=== PATIENT | female | born 1960 ===

== ENCOUNTER 2016-05-28 14:42 | Emergency (ER) | payer SELFPAY ==
[~2016-05-28] VITALS: Ht 175.3 cm; Wt 78.0 kg
[2016-05-28 14:44] VITALS: BP 126/65; PULSE 86; RESP 20; TEMP 98.3; O2SAT 100
--- NOTE | 2016-05-28 15:01 | PD ---
Physical Exam Time Seen by Provider: 14:59 Narrative 55yo F requesting medication refill on xanax, adderall, lamictal, and celexa. No medical complaints. VSS. Patient seen in triage. Waiting for bed placement. Data Data Last Documented VS Vital Signs Date Time Temp Pulse Resp B/P Pulse Ox O2 Delivery O2 Flow Rate FiO2 05/28/16 14:44 98.3 86 20 126/65 100 Room Air MDM Supervised Visit with KEEGAN: Yi Reagan May 28, 2016 15:01
--- NOTE | 2016-05-28 15:55 | PD ---
HPI . requesting refills on xanax, Adderall, Lamictal and Celexa Chief Complaint: Medication Refill Request Time Seen by Provider: 15:52 Travel History International Travel<30 days: No Contact w/Intl Traveler<30days: No Traveled to known affect area: No History of Present Illness HPI 55-year-old female with history of bipolar disorder and post medical stress disorder here requesting refill on Xanax, Adderall, Lamictal and Celexa. Patient says she was previously seen by another provider who is retiring and ran out of medications. She is here requesting a 19 day supply as she has a new primary care provider, but they are unable to see her until then. She has no other complaints. History Past Medical Histgory ?: Not Menopausal: No Hx Cancer: No Hx Chemotherapy: No Hx Radiation Therapy: No Hx Diabetes: No History of Immunological Disor: No HX Cerebrovascular Accident: No Hx Heart Attack: No Hx Asthma: No Hx Dialysis: No Social History Alcohol Use: No Tobacco Use: No Allergies-Medications (Allergen,Severity, Reaction): Coded Allergies: No Known Allergies (Unverified , 05/28/16) Review of Systems General / Constitutional: No: Fever Eyes: No: Visual changes HENT: No: Headaches Cardiovascular: No: Chest Pain or Discomfort Respiratory: No: Shortness of Breath Gastrointestinal: No: Abdominal Pain Genitourinary: No: Dysuria Musculoskeletal: No: Pain Skin: No Rash Neurologic: No: Weakness Psychiatric: No: Depression Endocrine: No: Polydipsia Hematologic/Lymphatic: No: Easy Bruising Physical Exam Narrative GENERAL: AAO x 3, no acute distress, Well-nourished, well-developed patient. SKIN: Warm and dry. No visible rashes or bruising. HEAD: Normocephalic and atraumatic. EYES: No scleral icterus. No injection or drainage. ENT: No nasal drainage noted. Mucous membranes pink. Airway patent. NECK: Supple, trachea midline. No JVD. CARDIOVASCULAR: Regular rate and rhythm without murmurs, gallops, or rubs. RESPIRATORY: Breath sounds equal bilaterally. No accessory muscle use. No rhonchi or rales. GASTROINTESTINAL: Visual inspection is normal EXTREMITIES: No cyanosis or edema. BACK: Nontender without obvious deformity. No CVA tenderness. PSYCH: AAO x 3, normal affect. Data Data Last Documented VS Vital Signs Date Time Temp Pulse Resp B/P Pulse Ox O2 Delivery O2 Flow Rate FiO2 05/28/16 14:44 98.3 86 20 126/65 100 Room Air MDM Medical Screen Exam Complete: Yes Emergency Medical Condition: No Differential Diagnosis medication refill, anxiety, bipolar disorder Narrative Course 55-year-old female with history of bipolar disorder and post medical stress disorder here requesting refill on Xanax, Adderall, Lamictal and Celexa. Patient says she was previously seen by another provider who is retiring and ran out of medications. She is here requesting a 19 day supply as she has a new primary care provider, but they are unable to see her until then. She has no other complaints. A medical screening exam was performed: At the time of evaluation the presenting medical condition was determined not to be of an emergent nature. The patient was given the option of receiving additional care, but declined. Patient was given options for additional community resources from which to obtain care. The Patient Has Been advised to seek medical attention for their presenting complaint. The patient has been advised to return to the ER at any time if an emergent condition develops. Primary Impression: Encounter for medical screening examination Condition: Stable Courtney Villegas May 28, 2016 15:55
== END 2016-05-28 16:18 | disposition left against medical advice (07) ==
LOC: NEPK 14:42
DX: F31.9 Bipolar disorder, unspecified (principal)
CPT/HCPCS: 99281

== ENCOUNTER 2017-05-24 10:51 | Emergency (ER) | payer MEDICARE ==
[~2017-05-24] VITALS: Ht 175.3 cm; Wt 81.8 kg
[2017-05-24 11:10] VITALS: BP 128/77; PULSE 67; RESP 18; TEMP 98.2; O2SAT 97
--- NOTE | 2017-05-24 11:45 | RADRPT ---
EXAM DATE/TIME: 05/24/2017 11:19 [facility] COMPARISON: No previous studies available for comparison. INDICATIONS : Stepped on glass three weeks ago. Pain in heel. MEDICAL HISTORY : None. SURGICAL HISTORY : None. ENCOUNTER: Initial ACUITY: 3 weeks PAIN SCORE: 8/10 LOCATION: Left Heel FINDINGS: Three view examination of the left foot demonstrates no soft tissue swelling, dislocation, or fractur e. The tarsal bones appear intact. The interphalangeal and metatarsophalangeal joints are intact. The calcaneus is intact. Bony mineralization is normal. There is a trying to the foreign body just inferior to the calcaneus measuring 10 mm x 4 mm. CONCLUSION: Foreign body as above Daryn Douglas MD on May 24, 2017 at 11:42 Board Certified Radiologist. This report was verified electronically.
[2017-05-24] MEDS ORDERED: IBUP-232 PO (13:06)
[2017-05-24] MEDS ORDERED: CEPH-460 PO (13:06)
--- NOTE | 2017-05-24 13:06 | PD ---
HPI Chief Complaint: Foreign Body Time Seen by Provider: 12:17 Travel History International Travel<30 days: No Contact w/Intl Traveler<30days: No Traveled to known affect area: No History of Present Illness HPI 56-year-old female presents emergency department with question of foreign body in the left heel. Patient states she is making [place] when a piece of glass fell and broke and she is confident there is a piece of glass in her left heel. This occurred 3 weeks ago. Pain is currently 6 out of 10. She states she try to get out herself, but it was unsuccessful. There is no drainage, erythema, or signs of infection currently. There is a large callus with apparent healed puncture wound. She has no other complaints. No known drug allergies. PFSH Past Medical History Asthma: No Cancer: No Chemotherapy: No Cerebrovascular Accident: No Diabetes: No Dialysis: No Immune Disorder: No Myocardial Infarction: No Radiation Therapy: No Menopausal: No Social History Alcohol Use: No Tobacco Use: No Allergies-Medications (Allergen,Severity, Reaction): Coded Allergies: No Known Allergies (Unverified , 05/28/16) Review of Systems Except as stated in HPI: all other systems reviewed are Neg General / Constitutional: No: Fever Eyes: No: Visual changes HENT: No: Headaches Cardiovascular: No: Chest Pain or Discomfort Respiratory: No: Shortness of Breath Gastrointestinal: No: Abdominal Pain Genitourinary: No: Dysuria Musculoskeletal: No: Pain Skin: Positive Lesions (Puncture wound left heel. Possible foreign body), No Rash Neurologic: No: Weakness Psychiatric: No: Depression Endocrine: No: Polydipsia Hematologic/Lymphatic: No: Easy Bruising Physical Exam Narrative GENERAL: Patient appears in no acute distress. SKIN: Warm and dry. Patient has apparent healed puncture wound to the left medial heel without drainage, erythema, warmth, or signs of infection. HEAD: Atraumatic. Normocephalic. EYES: Pupils equal and round. No scleral icterus. No injection or drainage. ENT: No nasal bleeding or discharge. Mucous membranes pink and moist. Pharynx is clear. Airways patent. NECK: Trachea midline. Supple nontender. CARDIOVASCULAR: Regular rate and rhythm. RESPIRATORY: No accessory muscle use. Clear to auscultation. Breath sounds equal bilaterally. MUSCULOSKELETAL: Extremities without clubbing, cyanosis, or edema. No obvious deformities. Patient has tenderness along the medial heel on the left foot. NEUROLOGICAL: Awake and alert. No obvious cranial nerve deficits. Motor grossly within normal limits. Five out of 5 muscle strength in the arms and legs. Normal speech. PSYCHIATRIC: Appropriate mood and affect; insight and judgment normal. Data Data Last Documented VS Vital Signs Date Time Temp Pulse Resp B/P (MAP) Pulse Ox O2 Delivery O2 Flow Rate FiO2 05/24/17 11:10 98.2 67 18 128/77 (94) 97 Orders Orders Foot, Complete ([id number]) (05/24/17 ) MDM Medical Decision Making Medical Screen Exam Complete: Yes Emergency Medical Condition: Yes Differential Diagnosis Puncture wound left heel. Foreign body. Need for foreign body removal. Narrative Course Patient is medically stable at time of exam. X-ray of the left foot shows a 4 mm x 10 mm foreign body to the medial left heel just lateral to the calcaneus. Calls placed to Dr. Nunez, the finance assistant on-call and patient is discussed Patient is placed on Keflex 500 mg 3 times daily 7 days. Patient is given ibuprofen 600 mg 4 times daily as needed pain #40. Patient is to follow-up with Dr. Nunez on Wednesday for foreign body removal in her office. Diagnosis Primary Impression: Puncture wound of left heel Qualified Codes: S91.332A - Puncture wound without foreign body, left foot, initial encounter Additional Impression: Foreign body in left foot Qualified Codes: S90.852A - Superficial foreign body, left foot, initial encounter Referrals: Esthela Nunez DPM 2 days Call for Appointment Patient Instructions: General Instructions Additional Instructions: X-ray of the left foot shows a 4 mm x 10 mm foreign body to the medial left heel just lateral to the calcaneus. Calls placed to Dr. Nunez, the finance assistant on-call and patient is discussed Patient is placed on Keflex 500 mg 3 times daily 7 days. Patient is given ibuprofen 600 mg 4 times daily as needed pain #40. Patient is to follow-up with Dr. Nunez on Wednesday for foreign body removal in her office. Med/Other Pt SpecificInfo: Prescription(s) given Disposition: DISCHARGE HOME Condition: Stable Paresh Garza May 24, 2017 13:06
== END 2017-05-24 13:12 | disposition home or self-care (01) ==
LOC: NEPK 10:51
DX: S91.342A Puncture wound with foreign body, left foot, initial encounter (principal); W25.XXXA Contact with sharp glass, initial encounter; Y93.89 Activity, other specified
CPT/HCPCS: 73630; 99283